=== PATIENT | female | born 2000 | race Hispanic/Latino ===

== ENCOUNTER 2019-07-28 01:15 | Emergency (ER) | payer MEDICAID, OTHER ==
[2019-07-28] MEDS ORDERED: SODIUM CHLORIDE 0.9% 1000ML 1,000 ML IV ONE (01:45)
[2019-07-28 02:07] LABS: BASOPHILS % (AUTO) 0.6 % (0.0-5.0); EOSINOPHILS % (AUTO) 0.1 % (0.0-8.0); HEMATOCRIT 37.4 % (36-48); MEAN CORPUSCULAR HEMOGLOBIN 30.9 pg (27.0-33.0); MEAN CORPUSCULAR HGB CONC 34.2 g/dL (32.0-36.0); MEAN CORPUSCULAR VOLUME 90.4 fL (80-100); MONOCYTES % (AUTO) 5.6 % (3.0-13.0); NEUTROPHILS % (AUTO) 80.7 % (40.0-77.0); PLATELET COUNT (AUTO) 206 K/uL (130-400); RED BLOOD CELL COUNT(AUTO) 4.14 MIL/uL (4.00-5.50); RED CELL DISTRIBUTION WIDTH 12.6 % (11.0-15.5); WHITE BLOOD COUNT (AUTO) 9.7 K/uL (4.8-10.8)
[2019-07-28 02:58] LABS: APPEARANCE,URINE Clear (CLEAR); BILIRUBIN,URINE Negative (NEGATIVE); COLOR,URINE Yellow (YELLOW); GLUCOSE, URINE (UA) Negative (NEGATIVE); KETONES,URINE >=160 mg/dL (NEGATIVE); LEUKOCYTE ESTERASE ,URINE Small (NEGATIVE); NITRATE,URINE Negative (NEGATIVE); OCCULT BLOOD,URINE Moderate (NEGATIVE); PH,URINE 5.5 (5.0-8.0); PROTEIN,URINE Negative (NEGATIVE)
[2019-07-28 04:41] LABS: BACTERIA,URINE Few /HPF (None Seen); HCG,QUAL RESULT POSITIVE (NEGATIVE)
== END 2019-07-28 05:29 | disposition home or self-care (01) ==
LOC: EDH 01:15
DX: O20.0 Threatened abortion (principal); O21.0 Mild hyperemesis gravidarum; E86.0 Dehydration; Z88.1 Allergy status to other antibiotic agents; Z3A.01 Less than 8 weeks gestation of pregnancy
CPT/HCPCS: 36415; 76801; 81001; 81025; 84702; 85025; 86900; 86901; 96360; 99285; J7030

== ENCOUNTER 2019-11-04 23:52 | Emergency (ER) | payer MEDICAID ==
[2019-11-05 00:26] LABS: RAPID GROUP A STREP NEGATIVE (NEGATIVE)
== END 2019-11-05 00:51 | disposition home or self-care (01) ==
LOC: EDH 23:52
DX: O98.512 Other viral diseases complicating pregnancy, second trimester (principal); B34.9 Viral infection, unspecified; Z3A.20 20 weeks gestation of pregnancy; Z88.1 Allergy status to other antibiotic agents
CPT/HCPCS: 81025; 87804; 87880

== ENCOUNTER 2020-03-08 12:57 | Inpatient (IN) | payer MEDICAID ==
[~2020-03-08] VITALS: Ht 152.4 cm; Wt 61.7 kg
[2020-03-08 13:38] LABS: APPEARANCE,URINE Cloudy (CLEAR); BILIRUBIN,URINE Negative (NEGATIVE); COLOR,URINE Yellow (YELLOW); GLUCOSE, URINE (UA) Negative (NEGATIVE); KETONES,URINE Negative (NEGATIVE); LEUKOCYTE ESTERASE ,URINE Small (NEGATIVE); NITRATE,URINE Negative (NEGATIVE); OCCULT BLOOD,URINE Large (NEGATIVE); PROTEIN,URINE Negative (NEGATIVE); UROBILINOGEN,URINE 0.2 mg/dL (0.2-1.0)
[2020-03-08 13:46] LABS: AMPHET/METH SCREEN,URINE NEGATIVE (NEGATIVE); BARBITURATE SCREEN, URINE NEGATIVE (NEGATIVE); BENZODIAZEPINES SCREEN,URINE NEGATIVE (NEGATIVE); CANNABINOID SCREEN,URINE NEGATIVE (NEGATIVE); COCAINE SCREEN,URINE NEGATIVE (NEGATIVE); OPIATE SCREEN,URINE NEGATIVE (NEGATIVE); PHENCYCLIDINE SCREEN,URINE NEGATIVE (NEGATIVE)
[2020-03-08 13:48] LABS: BACTERIA,URINE Few /HPF (None Seen)
[2020-03-08 14:41] LABS: HEMATOCRIT 33.8 % (36-48); MEAN CORPUSCULAR HEMOGLOBIN 32.3 pg (27.0-33.0); MEAN CORPUSCULAR HGB CONC 34.9 g/dL (32.0-36.0); MEAN CORPUSCULAR VOLUME 92.6 fL (80-100); PLATELET COUNT (AUTO) 156 K/uL (130-400); RED BLOOD CELL COUNT(AUTO) 3.65 MIL/uL (4.00-5.50); RED CELL DISTRIBUTION WIDTH 12.2 % (11.0-15.5); WHITE BLOOD COUNT (AUTO) 9.8 K/uL (4.8-10.8)
[2020-03-08] MEDS ORDERED: OXYTOCIN-LR 20 UNITS/1000 ML 1,000 ML IV SCH (18:30)
[2020-03-08] MEDS: LACTATED RINGERS 1000ML 1,000 ML IV PRN (19:00)
[2020-03-08 20:00] VITALS: BP 113/68
[2020-03-09] MEDS: LACTATED RINGERS 1000ML 1,000 ML IV PRN (01:30)
[2020-03-09] MEDS ORDERED: PREN1TAB80 PO (01:42)
[2020-03-09] MEDS ORDERED: OXYTOCIN 10 USP UNITS/ML 20 UNIT in LACTATED RINGERS 1000ML 1,000 ML IV SCH (05:00)
[2020-03-09 07:11] LABS: HEPATITIS Bs ANTIGEN SCREEN P Negative (Negative)
[2020-03-09] MEDS ORDERED: PROMETHAZINE HCL 25 MG/ML 1ML AMPULE IM SCH (07:15)
[2020-03-09] MEDS ORDERED: MEPERIDINE-PF 50 MG/ML SYG IVP SCH (07:15)
[2020-03-09] MEDS ORDERED: OXYTOCIN-LR 20 UNITS/1000 ML 1,000 ML IV SCH (07:45)
[2020-03-09] MEDS ORDERED: LIDOCAINE HCL 1% 20 ML VIAL INJ PRN (08:15)
[2020-03-09] MEDS ORDERED: LIDOCAINE HCL 1% 20 ML VIAL ONE (08:28)
[2020-03-09] MEDS ORDERED: MEASLES/MUMPS/RUBELLA VACCINE, LIVE 0.5 ML/VIAL SQ PRN (09:30)
[2020-03-09] MEDS ORDERED: ACETAMINOPHEN-CODEINE 300/30MG TAB PO PRN (09:30)
[2020-03-09] MEDS ORDERED: ACETAMINOPHEN 325 MG TAB PO PRN (09:30)
[2020-03-09] MEDS ORDERED: LANOLIN 30GM OINTMENT TP PRN (09:30)
[2020-03-09] MEDS ORDERED: DIPH,PERTUSS(ACELL),TET VAC/PF 0.5 ML VIAL IM PRN (09:30)
[2020-03-09] MEDS ORDERED: BENZOCAINE/LANOLIN/ALOE VERA 60 ML AEROSOL TP PRN (09:30)
[2020-03-09] MEDS ORDERED: WITCH HAZEL 1 PAD TP PRN (09:30)
[2020-03-09 12:20] VITALS: BP 134/79
[2020-03-09] MEDS: IBUPROFEN 600 MG TABLET PO PRN ×2 (12:41→21:45)
--- NOTE | 2020-03-09 15:40 | NUR ---
HX of Depresion and Anxiety Sw met with pt and mother Joanna Perkins [phone]. Pt agreeable to interview with mom present. Pt lives with her parents, works as a provider at [employer], is independent, has Medicaid and WIC assistance. Pt has basic items for NB son Malcolm Perkins including car seat and Dr Jean Thompson will follow after dc. FOB is not currently in the picture, he is requesting paternity test before any involvement with pt or baby. Pt denies that there could be anyone else that could be father, FOB is just being an "idiot". Pt has good family support in place. Pt denies no hx of abuse, domestic violence, CPS legal or substance abuse issues. Pt states she was dx with depression and anxiety at age 13 when she was in ER for abdominal pain. Pt denies any psych care or meds during that time. Pt states she experienced depression after of aunt in Jul, but knows that was related to grieving, does not feel it was 'depression". Pt denies need for referral or intervention at this time.
[2020-03-09 16:52] VITALS: BP 97/43
[2020-03-09 20:08] VITALS: BP 107/63
[2020-03-09] MEDS: DOCUSATE SODIUM 100 MG CAP PO SCH (21:39)
[2020-03-10 00:06] VITALS: BP 101/60
[2020-03-10 03:47] VITALS: BP 116/69
[2020-03-10] MEDS: IBUPROFEN 600 MG TABLET PO PRN ×2 (04:00→09:23)
[2020-03-10 05:14] LABS: HEMATOCRIT 24.9 % (36-48); MEAN CORPUSCULAR HEMOGLOBIN 31.7 pg (27.0-33.0); MEAN CORPUSCULAR HGB CONC 33.3 g/dL (32.0-36.0); RED BLOOD CELL COUNT(AUTO) 2.62 MIL/uL (4.00-5.50); RED CELL DISTRIBUTION WIDTH 12.4 % (11.0-15.5); WHITE BLOOD COUNT (AUTO) 10.3 K/uL (4.8-10.8)
[2020-03-10 07:23] VITALS: BP 107/52
--- NOTE | 2020-03-10 09:00 | NUR ---
DR. LARA ROUNDED AND DISCHARGED PT TO HOME. PATIENT STABLE AND HAS REMAINED AFEBRILE
[2020-03-10] MEDS: DOCUSATE SODIUM 100 MG CAP PO SCH (09:22)
[2020-03-10 11:17] VITALS: BP 116/77
--- NOTE | 2020-03-10 12:30 | NUR ---
PATIENT WAS TAKEN VIA W/C TO FAMILY [facility]LE CARRYING BABY IN [place]. PATIENT IS STABLE AND DENIES PAIN. PATIENT AND BABY DISCHARGED TO HER PARENTS.
--- NOTE | 2020-03-10 13:25 | NUR ---
DISCHARGE INSTRUCTIONS GIVEN AND PATIENT VERBALIZED UNDERSTANDING INSTRUCTIONS GIVEN.
== END 2020-03-10 12:30 | disposition home or self-care (01) | DRG 560 ==
LOC: OBSVTOIN 12:57 → LDH 12:57 → WSH 03-09 13:55
PROVIDERS: ADMIT Obstetrics & Gynecology; ATTEND Obstetrics & Gynecology
PROC: 10E0XZZ Delivery of Products of Conception, External Approach (ICD-10-PCS; principal; 2020-03-09)
PROC: 0W8NXZZ Division of Female Perineum, External Approach (ICD-10-PCS; 2020-03-09)
PROC: 10907ZC Drainage of Amniotic Fluid, Therapeutic from Products of Conception, Via Natural or Artificial Opening (ICD-10-PCS; 2020-03-09)
PROC: 3E0234Z Introduction of Serum, Toxoid and Vaccine into Muscle, Percutaneous Approach (ICD-10-PCS; 2020-03-09)
PROC: 3E0134Z Introduction of Serum, Toxoid and Vaccine into Subcutaneous Tissue, Percutaneous Approach (ICD-10-PCS; 2020-03-09)
DX: O69.82X0 Labor and delivery complicated by other cord entanglement, without compression, not applicable or unspecified (principal); Z37.0 Single live birth; Z23 Encounter for immunization; Z3A.38 38 weeks gestation of pregnancy
CPT/HCPCS: 36415; 80305; 81001; 85027; 86592; 86850; 86900; 86901; 87340; 90715; A4606; G0378; J2175; J2550; J2590; J7120

== ENCOUNTER 2022-03-06 22:47 | Emergency (ER) | payer MEDICAID, OTHER ==
[~2022-03-06] VITALS: Ht 154.9 cm; Wt 59.0 kg
[~2022-03-06 22:47] MED LIST: PREN1TAB80 PO
[2022-03-06 23:50] LABS: BASOPHILS % (AUTO) 0.1 % (0.0-5.0); EOSINOPHILS % (AUTO) 0.8 % (0.0-8.0); HEMATOCRIT 45.9 % (36-48); LYMPHOCYTES % (AUTO) 5.4 % (21.0-51.0); MEAN CORPUSCULAR HEMOGLOBIN 29.9 pg (27.0-33.0); MEAN CORPUSCULAR HGB CONC 33.3 g/dL (32.0-36.0); MEAN CORPUSCULAR VOLUME 89.8 fL (79-99); MONOCYTES % (AUTO) 3.8 % (3.0-13.0); NEUTROPHILS % (AUTO) 89.7 % (40.0-77.0); PLATELET COUNT (AUTO) 224 K/uL (130-400); RED BLOOD CELL COUNT(AUTO) 5.11 MIL/uL (4.00-5.50); RED CELL DISTRIBUTION WIDTH 11.9 % (11.0-15.5); WHITE BLOOD COUNT (AUTO) 12.5 K/uL (4.8-10.8)
[2022-03-06 23:56] LABS: APPEARANCE,URINE CLEAR (CLEAR); BILIRUBIN,URINE SMALL (NEGATIVE); COLOR,URINE YELLOW (YELLOW); GLUCOSE, URINE (UA) NEGATIVE (NEGATIVE); KETONES,URINE >=80 mg/dL (NEGATIVE); LEUKOCYTE ESTERASE ,URINE NEGATIVE (NEGATIVE); NITRATE,URINE NEGATIVE (NEGATIVE); OCCULT BLOOD,URINE TRACE-INTACT (NEGATIVE); PROTEIN,URINE TRACE mg/dL (NEGATIVE); UROBILINOGEN,URINE 0.2 mg/dL (0.2-1.0)
[2022-03-07 00:04] LABS: CREATININE 0.7 mg/dL (0.5-1.5); POTASSIUM 3.4 mmol/L (3.5-5.1)
[2022-03-07 00:08] LABS: ALBUMIN 4.8 g/dL (3.5-5.0); BILIRUBIN,TOTAL 0.9 mg/dL (0.2-1.0); TOTAL PROTEIN, SERUM 9.2 g/dL (6.0-8.3)
[2022-03-07 00:17] LABS: BACTERIA,URINE Rare /HPF (None Seen); MUCUS,URINE Many LPF (None Seen); SQUAMOUS EPITHELIAL CELL,UR Many /HPF (0-2)
[2022-03-07] MEDS ORDERED: ONDANSETRON 4MG INJ ONE (00:56)
[2022-03-07] MEDS ORDERED: ONDANSETRON 4MG INJ IVP ONE (01:00)
[2022-03-07 01:07] VITALS: BP 120/80
[2022-03-07] MEDS ORDERED: ONDA4TAB10 PO (01:34)
== END 2022-03-07 01:52 | disposition home or self-care (01) ==
LOC: EDH 22:47
DX: K52.9 Noninfective gastroenteritis and colitis, unspecified (principal); Z88.0 Allergy status to penicillin
CPT/HCPCS: 36415; 80053; 81001; 81025; 83690; 85025; 96374; 99283; J2405

== ENCOUNTER 2023-09-10 16:39 | Emergency (ER) | payer BC, MEDICAID ==
[~2023-09-10] VITALS: Ht 152.4 cm; Wt 50.8 kg
[~2023-09-10 16:39] MED LIST changes: +ONDA4TAB10 PO
[2023-09-10 17:35] LABS: BASOPHILS # (AUTO) 0.01 K/uL (0.00-0.20); BASOPHILS % (AUTO) 0.1 % (0.0-5.0); EOSINOPHILS # (AUTO) 0.06 K/uL (0.00-0.70); EOSINOPHILS % (AUTO) 0.8 % (0.0-8.0); HEMATOCRIT 41.1 % (36-48); IMMATURE GRANULOCYTE ABSOLUTE 0.02 K/uL (0-1); LYMPHOCYTES # (AUTO) 2.7 K/uL (1.0-4.8); MEAN CORPUSCULAR HGB CONC 33.1 g/dL (32.0-36.0); MEAN CORPUSCULAR VOLUME 90.5 fL (79-99); MONOCYTES # (AUTO) 0.4 K/uL (0.1-1.0); MONOCYTES % (AUTO) 5.4 % (3.0-13.0); NEUTROPHILS # (AUTO) 4.6 K/uL (1.8-7.7); NEUTROPHILS % (AUTO) 58.4 % (40.0-77.0); PLATELET COUNT (AUTO) 225 K/uL (130-400); RED BLOOD CELL COUNT(AUTO) 4.54 MIL/uL (4.00-5.50); WHITE BLOOD COUNT (AUTO) 7.8 K/uL (4.8-10.8)
[2023-09-10 18:03] LABS: B-TYPE NATRIURETIC PEPTIDE 11 pg/mL (0-100)
[2023-09-10 19:23] LABS: APPEARANCE,URINE CLEAR (CLEAR); BILIRUBIN,URINE NEGATIVE (NEGATIVE); COLOR,URINE COLORLESS (YELLOW); GLUCOSE, URINE (UA) NEGATIVE (NEGATIVE); KETONES,URINE 20 mg/dL (NEGATIVE); LEUKOCYTE ESTERASE ,URINE 250 Leu/uL (NEGATIVE); NITRATE,URINE NEGATIVE (NEGATIVE); OCCULT BLOOD,URINE NEGATIVE (NEGATIVE); PROTEIN,URINE NEGATIVE (NEGATIVE); UROBILINOGEN,URINE 0.2 mg/dL (0.2-1.0)
[2023-09-10 19:26] LABS: ADD UA MICROSCOPIC YES; HCG,QUALITATIVE URINE NEGATIVE (NEGATIVE)
[2023-09-10 19:29] LABS: BACTERIA,URINE RARE /HPF (None Seen); MUCUS,URINE RARE LPF (None Seen); SQUAMOUS EPITHELIAL CELL,UR RARE /HPF (0-2)
[2023-09-10] MEDS ORDERED: KETOROLAC 15MG/ML VIAL (15MG/ML) IV ONE (20:00)
[2023-09-10] MEDS ORDERED: MAG/ALUM/SIMETH 30 ML UDCUP PO ONE (20:00)
[2023-09-10] MEDS ORDERED: FAMOTIDINE 20MG VIAL IV ONE (20:00)
[2023-09-10] MEDS ORDERED: LIDOCAINE HCL 2% VISCOUS 15 ML UDCUP PO ONE (20:00)
[2023-09-10 20:14] LABS: CREATININE 0.7 mg/dL (0.5-1.5); POTASSIUM 3.6 mmol/L (3.5-5.1)
[2023-09-10 20:20] LABS: ALBUMIN 4.3 g/dL (3.5-5.0); BILIRUBIN,TOTAL 0.5 mg/dL (0.2-1.0); TOTAL PROTEIN, SERUM 8.2 g/dL (6.0-8.3)
[2023-09-10] MEDS ORDERED: CEFTRIAXONE 1G VIAL IVPB ONE (21:30)
[2023-09-10] MEDS ORDERED: CEPH500B PO (21:30)
[2023-09-10] MEDS ORDERED: DICY20TA2 PO (21:30)
[2023-09-10] MEDS ORDERED: FAMO-136 PO (21:30)
[2023-09-10 22:02] VITALS: BP 122/54; PULSE 68; RESP 18; O2SAT 100
== END 2023-09-10 22:04 | disposition home or self-care (01) ==
LOC: EDH 16:39
DX: N39.0 Urinary tract infection, site not specified (principal); R10.13 Epigastric pain; Z88.0 Allergy status to penicillin
CPT/HCPCS: 99285; 96374; 76705; 96375; 86677; 80053; 83880; 83690; 85025; 87088; 81001; 81025; 36415; J3490; J1885

== ENCOUNTER 2024-10-11 15:08 | Emergency (ER) | payer BC, MEDICAID ==
[~2024-10-11] VITALS: Ht 154.9 cm; Wt 60.8 kg
[~2024-10-11 15:08] MED LIST changes: +CEPH500B PO; +DICY20TA2 PO; +FAMO-136 PO; +ONDA-243 PO; -ONDA4TAB10 PO
--- NOTE | 2024-10-11 15:22 | EKG ---
[facility] Test Date: 2024-10-11 Test Time: 15:20:41 Pat Name: EDISON GILLESPIE Department: ED Room: Gender: F Metal Sorter: [facility] [place] : 2000 Requested By: KIKO BUENROSTRO Order Number: [id number] Reading MD: Romain Blank Measurements Intervals [place] Rate: 91 P: 45 DC: 140 QRS: 42 QRSD: 98 T: 30 QT: 341 QTc: 418 Interpretive Statements Sinus rhythm No previous ECG available for comparison RSR' IN V1 OR V2, PROBABLY NORMAL VARIANT Electronically Signed On 10-12-2024 15:11:38 TOLL LINE INSPECTOR by Romain Blank Please click the below link to view image of tracing.
--- NOTE | 2024-10-11 15:29 | ERN ---
General Chief Complaint: Anxiety/Panic Attack Stated Complaint: ANXIETY, SOB, NAUSEA, CHEST PRESSURE Time Seen by MD: 15:13 Source: patient History of Present Illness Initial Comments Patient is a 24-year-old female coming in to be evaluated for chest pressure. Patient states that these symptoms began 10 days ago and has been waxing and waning. Allergies: Coded Allergies: amoxicillin (Unverified Allergy, Unknown, 07/28/19) Home Meds Active Scripts Dicyclomine HCl (Bentyl) 20 Mg Tab, 20 MG PO Q6HPRN PRN for ABDOMINAL PAIN, #12 TAB 0 Refills Prov:ITALIA RIVERO [facility] 09/10/23 Famotidine (Pepcid) 20 Mg Tablet, 20 MG PO BID, #10 TAB 0 Refills Prov:ITAILA RIVERO [facility] 09/10/23 Cephalexin Monohydrate (Keflex) 500 Mg Cap, 500 MG PO TID for 7 Days, #21 CAP 0 Refills Prov:ITALIA RIVERO [facility] 09/10/23 Ondansetron (Ondansetron Odt) 4 Mg Tab.rapdis, 4 MG PO TIDP PRN for NAUSEA/VOMITING, #12 TAB 0 Refills Prov:NEFTALI LIZAMA MD 03/07/22 Reported Medications Vits W-Ca,Fe,FA(<1Mg) ( Vitamins) 1 Each Tablet, 1 EACH PO HS, TAB 03/09/20 Past Medical History Past Medical History: Anemia, Anxiety Medical History Other: LOW IRON Past Surgical History: None Social History Social History: Other Female( History) LMP: Oct 06, 2023 Results Laboratory and Microbiology Lab and Micro Result Laboratory Tests Test 10/11/24 15:29 10/11/24 16:05 White Blood Count 7.6 K/uL (4.8-10.8) Red Blood Count 4.56 MIL/uL (4.00-5.50) Hemoglobin 13.6 g/dL (12.0-16.0) Hematocrit 41.4 % (36-48) Mean Corpuscular Volume 90.8 fL (79-99) Mean Corpuscular Hemoglobin 29.8 pg (27.0-33.0) Mean Corpuscular Hemoglobin Concent 32.9 g/dL (32.0-36.0) Red Cell Distribution Width 12.0 % (11.0-15.5) Platelet Count 197 K/uL (130-400) Mean Platelet Volume 10.5 fL (7.5-10.5) Immature Granulocyte % (Auto) 0.3 % (0-1) Neutrophils (%) (Auto) 86.4 % (40.0-77.0) H Lymphocytes (%) (Auto) 8.0 % (21.0-51.0) L Monocytes (%) (Auto) 4.9 % (3.0-13.0) Eosinophils (%) (Auto) 0.3 % (0.0-8.0) Basophils (%) (Auto) 0.1 % (0.0-5.0) Neutrophils # (Auto) 6.6 K/uL (1.8-7.7) Lymphocytes # (Auto) 0.6 K/uL (1.0-4.8) L Monocytes # (Auto) 0.4 K/uL (0.1-1.0) Eosinophils # (Auto) 0.02 K/uL (0.00-0.70) Basophils # (Auto) 0.01 K/uL (0.00-0.20) Absolute Immature Granulocyte (auto 0.02 K/uL (0-1) Nucleated Red Blood Cells 0.0 % (0.0-0.19) White Cell Morphology Comment See comments Sodium Level 137 mmol/L (136-145) Potassium Level 3.7 mmol/L (3.5-5.1) Chloride Level 101 mmol/L (101-111) Carbon Dioxide Level 27 mmol/L (21-32) Blood Urea Nitrogen 15 mg/dL (7-18) Creatinine 0.7 mg/dL (0.5-1.0) Glomerular Filtration Rate Calc 123 mL/min (>90) Random Glucose 90 mg/dL (70-105) Total Calcium 9.2 mg/dL (8.5-10.1) Total Creatine Kinase 63 U/L (21-232) Troponin I High Sensitivity < 4 ng/L (4-50) L B-Type Natriuretic Peptide 8 pg/mL (0-100) Urine Color LIGHT-YELLOW (YELLOW) Urine Appearance CLEAR (CLEAR) Urine pH 6.0 (5.0-8.0) Urine Specific [place] 1.023 (1.001-1.031) Urine Protein NEGATIVE mg/dL (NEGATIVE) Urine Glucose (UA) NEGATIVE mg/dL (NEGATIVE) Urine Ketones 5 mg/dL (NEGATIVE) H Urine Occult Blood NEGATIVE (NEGATIVE) Urine Nitrate NEGATIVE (NEGATIVE) Urine Bilirubin NEGATIVE mg/dL (NEGATIVE) Urine Urobilinogen 0.2 mg/dL (0.2-1.0) Urine Leukocyte Esterase NEGATIVE Jessi/uL Urine RBC 2-5 /HPF (0-1) H Urine WBC 0-1 /HPF (0-1) Urine Squamous Epithelial Cells RARE /HPF (0-2) Urine Bacteria RARE /HPF (None Seen) Urine HCG, Qualitative NEGATIVE (NEGATIVE) Labs Reviewed?: Yes EKG/XRAY/US/CT/MRI EKG Comment 10/11/2024 time 3:20 p.m. Ventricular rate [address] wave elevation or depression NC 140 X-RAY Comment chest xray-nad MDM MDM: Differential diagnosis: GERD, gastritis, NSTEMI Patient is a 24-year-old female coming in to be evaluated for multiple complaints. Patient states she felt her stomach discomfort also had chest pressure. Laboratory workup negative for acute findings. Patient will be discharged with a diagnosis of gastroenteritis. ED Course Orders Procedure Category Date Status Time Cbc With Differential LAB 10/11/24 Complete 15:16 B-Type Natriuretic LAB 10/11/24 Complete Peptide 15:16 Chest 1vw RAD 10/11/24 Taken 15:16 12 Lead Ekg Tracing- EKG 10/11/24 Complete Technical 15:16 Creatine Kinase, Total LAB 10/11/24 Complete 15:16 Troponin I High LAB 10/11/24 Complete Sensitivity 15:16 Urinalysis Profile LAB 10/11/24 Complete 15:16 Basic Metabolic Panel LAB 10/11/24 Complete 15:16 ,Urine Test LAB 10/11/24 Complete 15:16 Pantoprazole 40mg Inj PHA 10/11/24 Complete (Protonix 40mg Inj 15:30 Mag/Alum/Simeth 30ml PHA 10/11/24 Verified (Maalox Plus 30ml) 17:30 Current Medications Medications (Trade) Dose Ordered Sig/Gab Route PRN Reason Start Time Stop Time Status Last Admin Dose Admin Pantoprazole Sodium (PROTonix 40MG INJ) 40 mg ONCE ONCE IVP 10/11/24 15:30 10/11/24 15:31 DC 10/11/24 16:06 Vital Signs Date Time Temp Pulse Resp B/P (MAP) Pulse Ox O2 Delivery O2 Flow Rate FiO2 10/11/24 15:49 98.2 98 16 101/68 99 Room Air* 0 21 10/11/24 15:12 99.7 98 16 101/68 98 Room Air 0 DX & DISP Disposition: Discharge Departure Impression: Primary Impression: Acute gastroenteritis Condition: Stable Scripts Pantoprazole Sodium (Protonix) 40 Mg Ectab 1 TAB PO DAILY for 30 Days, #30 TAB 0 Refills Prov: KIKO BUENROSTRO MD 10/11/24 Additional Instructions: You have been reviewed in the emergency department at [facility] after presenting with chest pain. After considering your history, your risk factors, your EKG and your blood test troponins, have been found to be at very low risk less than (1 in 100) of having a major adverse cardiac event (like heart attack) in the near future. In the " low risk" group, the risks of doing further tests and treatment as the inpatient outweighs the benefits. In many patients in the low risk group for the test of any sort or unnecessary, however he should discuss this further with his general practitioner who will understand the medical and personal backgrounds better. Because we have never declared you" no risk" we would suggest. 1 returning for medical review if you have further episodes of chest pain/arm pain or other concerning symptoms like dizziness, collapse, palpitations or shortness of breath. 2. Following up with your local doctor who will consider the need for further testing and will also ensure that any modifiable risk factors you may have for heart disease are optimally managed. Patient will be discharged in stable condition at the moment discharge patient states , no chest pain Referrals: NONE (PCP) CLOVIS MCGREGOR MD Time of Disposition: 17:03 KIKO BUENROSTRO MD Oct 11, 2024 15:29
[2024-10-11 15:49] VITALS: BP 101/68; PULSE 98; RESP 16; TEMP 98.3; O2SAT 99
[2024-10-11 15:53] LABS: BASOPHILS # (AUTO) 0.01 K/uL (0.00-0.20); BASOPHILS % (AUTO) 0.1 % (0.0-5.0); EOSINOPHILS # (AUTO) 0.02 K/uL (0.00-0.70); EOSINOPHILS % (AUTO) 0.3 % (0.0-8.0); HEMATOCRIT 41.4 % (36-48); IMMATURE GRANULOCYTE ABSOLUTE 0.02 K/uL (0-1); LYMPHOCYTES # (AUTO) 0.6 K/uL (1.0-4.8); MEAN CORPUSCULAR HEMOGLOBIN 29.8 pg (27.0-33.0); MEAN CORPUSCULAR HGB CONC 32.9 g/dL (32.0-36.0); MEAN CORPUSCULAR VOLUME 90.8 fL (79-99); MONOCYTES # (AUTO) 0.4 K/uL (0.1-1.0); MONOCYTES % (AUTO) 4.9 % (3.0-13.0); NEUTROPHILS # (AUTO) 6.6 K/uL (1.8-7.7); NEUTROPHILS % (AUTO) 86.4 % (40.0-77.0); PLATELET COUNT (AUTO) 197 K/uL (130-400); RED BLOOD CELL COUNT(AUTO) 4.56 MIL/uL (4.00-5.50); WHITE BLOOD COUNT (AUTO) 7.6 K/uL (4.8-10.8)
[2024-10-11 16:02] LABS: CREATININE 0.7 mg/dL (0.5-1.0); POTASSIUM 3.7 mmol/L (3.5-5.1)
[2024-10-11] MEDS: PANTOPrazole 40 MG/VIAL IVP ONE (16:06)
[2024-10-11 16:14] LABS: APPEARANCE,URINE CLEAR (CLEAR); BILIRUBIN,URINE NEGATIVE (NEGATIVE); COLOR,URINE LIGHT-YELLOW (YELLOW); GLUCOSE, URINE (UA) NEGATIVE (NEGATIVE); KETONES,URINE 5 mg/dL (NEGATIVE); LEUKOCYTE ESTERASE ,URINE NEGATIVE Leu/uL (NEGATIVE); NITRATE,URINE NEGATIVE (NEGATIVE); OCCULT BLOOD,URINE NEGATIVE (NEGATIVE); PROTEIN,URINE NEGATIVE (NEGATIVE); UROBILINOGEN,URINE 0.2 mg/dL (0.2-1.0)
[2024-10-11 16:15] LABS: ADD UA MICROSCOPIC YES
[2024-10-11 16:16] LABS: B-TYPE NATRIURETIC PEPTIDE 8 pg/mL (0-100)
[2024-10-11 16:27] LABS: BACTERIA,URINE RARE /HPF (None Seen); MUCUS,URINE RARE LPF (None Seen); SQUAMOUS EPITHELIAL CELL,UR RARE /HPF (0-2); WBC,URINE 0-1 /HPF (0-1)
[2024-10-11 16:36] LABS: HCG,QUALITATIVE URINE NEGATIVE (NEGATIVE)
[2024-10-11] MEDS ORDERED: PANT40TA55 PO (17:04)
--- NOTE | 2024-10-11 17:29 | HMCIMG ---
CHEST 1VW REASON: chest COMPARISON: None. FINDINGS: Single view of the chest was obtained. Lungs are clear. Heart size is normal. There is no pulmonary vascular congestion. Mediastinum and bony thorax appear unremarkable. IMPRESSION: 1. Normal single view chest x-ray.
[2024-10-11] MEDS ORDERED: MAG/ALUM/SIMETH 30 ML UDCUP PO ONE (17:30)
== END 2024-10-11 17:11 | disposition home or self-care (01) ==
LOC: EDH 15:08
DX: K52.9 Noninfective gastroenteritis and colitis, unspecified (principal); Z88.0 Allergy status to penicillin
CPT/HCPCS: 99284; 96374; 71045; 82550; 84484; 80048; 83880; 85025; 81001; 81025; 36415; 93005; J2470